=== PATIENT | male | born 1990 | race Caucasian/White ===

== ENCOUNTER 2017-05-10 02:33 | Emergency (ER) | payer OTHER ==
[~2017-05-10] VITALS: Ht 188 cm; Wt 181.0 kg
[~2017-05-10 02:33] MED LIST: HYDACE5 PO; RXTRAM50 PO; SILSUL1TC TOP
[2017-05-10] MEDS ORDERED: Amoxicillin500 MG PO (02:57)
== END 2017-05-10 03:12 | disposition home or self-care (01) ==
LOC: ER 02:33
DX: J02.0 Streptococcal pharyngitis (principal); Z88.5 Allergy status to narcotic agent; Z79.2 Long term (current) use of antibiotics
CPT/HCPCS: 87081; 87430; 99283

== ENCOUNTER 2018-08-21 08:56 | Inpatient (IN) | payer OTHER ==
[~2018-08-21] VITALS: Ht 188 cm; Wt 161.7 kg
[~2018-08-21 08:56] MED LIST changes: +Amoxicillin500 MG PO
[2018-08-21] MEDS ORDERED: Prilosec Otc20 MG PO (09:13)
[2018-08-21] MEDS ORDERED: MULTI VITAMIN1 EACH PO (09:14)
[2018-08-21 10:32] LABS: BASOPHILS PERCENT AUTO 1 % (0-2); EOSINOPHILS PERCENT AUTO 1 % (0-6); Hematocrit 47.3 % (37.0-53.0); Hemoglobin 15.3 g/dL (13.5-17.5); IMMATURE GRAN ABSOLUTE AUTO 0.01 K/mm3 (0.00-0.10); IMMATURE GRAN PERCENT AUTO 0 % (0-1); LYMPHOCYTES ABSOLUTE AUTO 2.71 K/mm3 (0.84-5.20); LYMPHOCYTES PERCENT AUTO 33 % (21-46); MONOCYTES ABSOLUTE AUTO 0.72 K/mm3 (0.16-1.47); MONOCYTES PERCENT AUTO 9 % (4-13); Mean Corpuscular HGB 28.1 pg (26.0-34.0); Mean Corpuscular HGB Conc 32.3 g/dL (31.5-36.5); Mean Corpuscular Volume 87 fL (80-100); Mean Platelet Volume 11.1 fL (9.1-12.4); NEUTROPHILS ABSOLUTE AUTO 4.59 K/mm3 (1.96-9.15); NEUTROPHILS PERCENT AUTO 56 % (41-73); Platelet Count 266 K/mm3 (150-400); RDW Coefficient Variation 13.5 % (11.7-14.2); RDW Standard Deviation 42.5 fL (35.1-46.3); Red Blood Cell Count 5.45 M/mm3 (4.30-5.90); White Blood Cell Count 8.23 K/mm3 (4.00-11.30)
[2018-08-21 11:00] LABS: Source, Urine Clean Catch
[2018-08-21 11:05] LABS: Appearance, Urine Clear (Clear); Bilirubin, Urine Neg (Neg); Blood, Urine 1+ (Neg); Color, Urine Yellow (P-Yellow); Glucose Qualitative, Urine Neg (Neg); Ketones, Urine 2+ (Neg); Leukocyte Esterase, Urine 1+ (Neg); Nitrite, Urine Neg (Neg); Protein, Urine 1+ (Neg); Urobilinogen, Urine NORM (Normal)
[2018-08-21 11:07] LABS: Alanine Aminotransfer (ALT/SGP 54 U/L (12-78); Albumin, Blood 3.8 g/dL (3.4-5.0); Albumin/Globulin Ratio 0.9 (0.8-1.8); Alk Phos 83 U/L (50-136); Anion Gap 6 mmol/L (6-16); Aspartate Aminotrans (AST/SGOT 30 U/L (12-37); Bilirubin, Total 0.6 mg/dL (0.1-1.0); Blood Urea Nitrogen 8 mg/dL (8-24); Bun/Creatinine Ratio 10.2 (12.0-20.0); CO2, Blood 28 mmol/L (21-32); Calcium, Blood 9.4 mg/dL (8.5-10.1); Chloride, Blood 107 mmol/L (98-108); Creatinine, Blood 0.79 mg/dL (0.60-1.20); Globulin, Blood 4.3 g/dL (2.2-4.0); Glomerular Filtration Rate >60 (60-); Glucose, Blood 92 mg/dL (70-99); Potassium, Blood 3.9 mmol/L (3.5-5.5); Sodium, Blood 141 mmol/L (136-145); Total Protein, Blood 8.1 g/dL (6.4-8.2)
[2018-08-21 11:28] LABS: Red Blood Cells, Urine 0-2 /hpf (0-2)
[2018-08-21 11:29] LABS: Bacteria Rare /hpf; Squamous Epithelial Cells Rare /hpf (Few)
[2018-08-21 15:52] LABS: International Normalized Ratio 1.06; Prothrombin Time Results 11.2 Sec (9.7-11.5)
--- NOTE | 2018-08-21 16:51 | NUR ---
1605: PT TO ICU 8 FROM ER, STOOD AND TRANSFERRED SELF FROM [facility] TO BED WITHOUT DIFFICULTY, GAIT STEADY. PT A&OX4, APPROPRIATE AND COOPERATIVE, DENIES PAIN AND NAUSEA AT THIS TIME, STATES CRAMPING ABD PAIN HAS BEEN INTERMITTENT. CARDIAC MONITORING INITIATED, HRR NSR, LS CTA, BT+, LAST BM YESTERDAY, ABDOMEN SOFT, NO DISTENTION NOTED, SLIGHTLY TENDER TO PALPATION. PT VOIDING WITHOUT DIFFICULTY, NO EDEMA NOTED, SKIN INTACT. VSS. 1645: IV TO RIGHT FA DC'D D/T PAIN, 18G TO LAC AND 18G TO RAC INSERTED, HEPARIN BOLUS ADMINISTERED, HEPARIN GTT INFUSING AT 13U/KG/HR, NS INFUSING AT 125ML/HR PER ORDERS. PT CONTINUES TO DENY PAIN AND NAUSEA, FAMILY MEMBERS AT BEDSIDE.
--- NOTE | 2018-08-21 17:37 | NUR ---
PT TO RAG CUTTING MACHINE TENDER AT THIS TIME WITH HEART CENTER STAFF, VSS, FAMILY MEMBERS TO WAITING ROOM.
--- NOTE | 2018-08-21 19:30 | NUR ---
ASSUMING CARE OF PT AT THIS TIME. PT REPORT RECEIVED AT BEDSIDE WITH OFFGOING ICU NURSE, CALOS GARCIA AND OFFGOING ABLE SEAMAN NURSE, LUCA GARCIA. PT TRANSFERRED FROM [facility] SE[facility] TO ICU AT THIS TIME. VS STABLE - SEE VS FS. PT DOES NOT APPEAR TO BE IN DISTRESS AT THIS TIME. WILL REVIEW PLAN OF CARE.
--- NOTE | 2018-08-21 19:40 | NUR ---
ASSESSMENT PT CALM, QUIET, COOPERATIVE, RESPONDS TO VERBAL STIMULI, SPONT OPENS EYES, TALKS AND ANSWERS QUESTIONS APPROPRIATELY, A&O X4. SENSATION INTACT. DENIES N/T. PT ABLE TO TOVAR. KEEP RLE STRAIGHT D/T R GROIN ACCESS SITE. WILL ASSIST WIHT Q2 HR TURNS AND ADL'S. NO WEAKNESS NOTED. PT C/O BACK AND R GROIN SITE PAIN - MEDICATED WITH PAIN MEDS PER PHYSICIAN'S / UTILIZE NONPHARM METHODS. LUNGS CLEAR, LOWER LOBES DIMINISHED. SHALLOW BREATHING. PT ON RA. OXY SAT >90%. RR 14. DENIES SOB. NO COUGHING. AFEBRILE. NSR. HR 90'S. BP STABLE - SEE VS FS. STRONG PULSES. WARM, PINK SKIN. NO CHEST PAIN OR PRESSURE. NO EDEMA. R GROIN SITE WITH SHEATH AND CORDIS: SMALL AMOUNTS OF DRIED RED BLOOD, OTHERWISE DRESSING C/D/I, SLIGHT TENDERNESS WITH AND WITHOUT PALPATION, NO HEMATOMA, NO ACTIVE BLEEDING, NO S/SX OF INFECTION. TPA AT 10 ML/HR VIA R GROIN SHEATH. NS WITH INFLATED PRESSURE BAG VIA R GROIN SHEATH. HEPARIN DRIP AT 2.65 U/KG/HR WITH A DOSING WEIGHT 113 KG (6.0 ML/HR). VERIFIED DRIPS WITH CALOS GARCIA AND PHARMACY. GASTRIC SLEEVE COMPLETED ON 08/03/18. INCISIONS HEALED. ACTIVE BT X4 QUADRANTS. ABD SOFT, NONTENDER, SEVERE DIST (PT STATES ABD DIST IS NORMAL), OBESE. PT TOLERATING PO CLEAR LIQUID DIET. NPO AT MIDNIGHT D/T SCHEDULED MODERN GREEK STUDIES PROFESSOR PROCEDURES AT [id number] ON 08/22/18. PER REPORT - PT USES URINAL WITH ASSISTANCE. PIV X2. NS AT 125 ML/HR.
--- NOTE | 2018-08-21 20:30 | NUR ---
DR. MURO CALLED DR. MURO AT THIS TIME. UPDATED DR. MURO OF PT'S STATUS, PAIN, HYPERTENSION (SBP 160'S - SEE VS FS). DR. MURO INCREASED FENT DOSAGE TO 25-100 MCG Q1 HR PRN FOR PAIN. DR. MURO ALSO CHANGED NOTIFY PROVIDER ORDER, "IF FIBRINOGEN <150 MG/DL OR DROPS BY 50% IN 6 HOURS, POST PROCEDURE. PER DR. MURO, STOP TPA IF FIBRINOGEN <150 MCG/DL OR DROPS BY 50% IN [address], [address] MURO". INFORMED DR. MURO OF FIBRINOGEN 427 LAB VALUE COMPLETED AT 19:46. DR. MURO ALSO ORDERED HYDRALAZINE PRN FOR SBP >160.
[2018-08-22 02:07] LABS: BASOPHILS PERCENT AUTO 1 % (0-2); EOSINOPHILS ABSOLUTE AUTO 0.09 K/mm3 (0.00-0.68); EOSINOPHILS PERCENT AUTO 1 % (0-6); Hematocrit 42.9 % (37.0-53.0); Hemoglobin 13.8 g/dL (13.5-17.5); IMMATURE GRAN ABSOLUTE AUTO 0.03 K/mm3 (0.00-0.10); IMMATURE GRAN PERCENT AUTO 0 % (0-1); LYMPHOCYTES ABSOLUTE AUTO 4.02 K/mm3 (0.84-5.20); LYMPHOCYTES PERCENT AUTO 51 % (21-46); MONOCYTES ABSOLUTE AUTO 0.76 K/mm3 (0.16-1.47); MONOCYTES PERCENT AUTO 10 % (4-13); Mean Corpuscular HGB 28.5 pg (26.0-34.0); Mean Corpuscular HGB Conc 32.2 g/dL (31.5-36.5); Mean Corpuscular Volume 89 fL (80-100); Mean Platelet Volume 11.1 fL (9.1-12.4); NEUTROPHILS PERCENT AUTO 37 % (41-73); Platelet Count 246 K/mm3 (150-400); RDW Coefficient Variation 13.5 % (11.7-14.2); RDW Standard Deviation 43.8 fL (35.1-46.3); Red Blood Cell Count 4.84 M/mm3 (4.30-5.90)
[2018-08-22 02:22] LABS: Anion Gap 9 mmol/L (6-16); Blood Urea Nitrogen 7 mg/dL (8-24); Bun/Creatinine Ratio 8.8 (12.0-20.0); CO2, Blood 23 mmol/L (21-32); Calcium, Blood 8.5 mg/dL (8.5-10.1); Chloride, Blood 109 mmol/L (98-108); Creatinine, Blood 0.79 mg/dL (0.60-1.20); Glomerular Filtration Rate >60 (60-); Glucose, Blood 85 mg/dL (70-99); Potassium, Blood 3.8 mmol/L (3.5-5.5); Sodium, Blood 141 mmol/L (136-145)
--- NOTE | 2018-08-22 04:38 | NUR ---
SHIFT ASSESSMENT NO ACUTE CHANGES NOTED T/O SHIFT. PT CALM, QUIET, COOPERATIVE, RESPONDS TO VERBAL STIMULI, SPONT OPENS EYES, TALKS AND ANSWERS QUESTIONS APPROPRIATELY, A&O X4. PT SLEPT T/O SHIFT. SENSATION INTACT. DENIES N/T. PT ABLE TO TOVAR. RLE REMAINED STRAIGHT D/T R GROIN ATERIAL ACCESS SITE. ASSISTED WITH Q2 HR TURNS AND ADL'S. NO WEAKNESS NOTED. PT C/O BACK AND R GROIN SITE PAIN/DISCOMFORT T/O SHIFT. CONT TO ASSESS FOR PAIN/DISCOMFORT AND MEDICATED WITH PAIN MEDS PER PHYSICIAN'S ORDER / UTILIZE NONPHARM METHODS. LUNGS CLEAR, LOWER LOBES DIMINISHED. SHALLOW BREATHING. PT ON RA. OXY AT >90%. RR 12 TO 20'S. DENIES SOB. NO COUGHING. AFEBRILE. NSR. HR 80'S TO 90'S. SLIGHT HYPERTENSIVE AT BEGINNING OF THE SHIFT. OTHERWISE BP STABLE (SEE VS FS). STRONG PULSES. WARM, PINK SKIN. NO CHEST PAIN OR PRESSURE. NO EDEMA. R GROIN SITE WITH ARTERIAL SHEATH AND CORDIS: SMALL AMOUNTS OF DRIED RED BLOOD, OTHERWISE DRESSING C/D/I, SLIGHT TENDERNESS WITH AND WITHOUT PALAPTION, NO HEMATOMA, NO ACTIVE BLEEDING, NO S/SX OF INFECTION, NO BRUISING. TPA AT 10 ML/HR VIA R GROIN ARTERIAL SHEATH. NS WITH INFLATED PRESSURE BAG VIA R GROIN ARTERIAL SHEATH. HEPARIN DRIP AT 2.65 UNITS/KG/HR WITH A DOSING WEIGHT 113 KG (6.0 ML/HR). GASTRIC SLEEVE COMPLETED ON 08/03/18. INCISIONS HEALED. ACTIVE BT X4 QUADRANTS. ABD SOFT, NONTENDER, SEVERE DIST (PT STATES ABD DIST IS NORMAL), OBESE. PT TOLERATED PO CLEAR LIQUID DIET UNTIL 0000. NPO AT MIDNIGHT D/T SCHEDULED HOSE SUSPENDER CUTTER PROCEDURE THIS AM. PT C/O NAUSEA, NO VOMITING THIS AM. NAUSEA RESOLVED AFTER ADMINISTERING ZOFRAN. PT USED URINAL WITHOUT ASSISTANCE - DARK YELLOW URINE NOTED. PIV X2. NS AT 125 ML/HR. WILL CONT TO MONITOR PT AND WILL PROVIDE BEDSIDE REPORT TO ONCOMING NURSE THIS AM.
--- NOTE | 2018-08-22 10:20 | NUR ---
0745: CARE ASSUMED, ASSESSMENT COMPLETED. PT DENIES NAUSEA AT THIS TIME, STATES BACK PAIN IS 7/10, SELF SEALING FUEL TANK REPAIRER STAFF AT BEDSIDE TO TAKE PT FOR PROCEDURE. PT DENIES ABD PAIN AND RIGHT GROIN PAIN AT SHEATH ACCESS SITE, DRESSING INTACT WITH DRIED BLOOD, NO ACTIVE BLEEDING, NO HEMATOMA NOTED. TPA INFUSING THROUGH RIGHT FEMORAL SHEATH AT 0.5MG/HR, HEPARIN INFUSING VIA PERIPHERAL IV AT 2.65U/KG/HR. PT ALERT AND ORIENTED, TO SELF SEALING FUEL TANK REPAIRER AT THIS TIME FOR EVALUATION OF TPA TREATMENT. 0835: PT RETURNED TO ROOM FROM SELF SEALING FUEL TANK REPAIRER, VSS. TPA NOW INFUSING AT 2MG/HR SINCE 829 PER REPORT. NO INTERVENTION DONE, WILL CONTINUE TPA INFUSION X6 HOURS AND THEN PT WILL GO BACK TO SELF SEALING FUEL TANK REPAIRER TO RE-EVALUATE EFFECT OF TPA INFUSION. PT LYING FLAT WITH RLE STRAIGHT, DRESSING TO RIGHT FEMORAL SHEATH ACCESS SITE CDI. 0850: FENTANYL AND COMPAZINE ADMINISTERED PER ORDERS FOR 9/10 PAIN AND NAUSEA, PT DENIES OTHER NEEDS. 0915: PT RESTING WITH EYES CLOSED, VSS. 1030: PT REPOSITIONED IN BED, MEDICATED FOR 7/10 BACK PAIN, PT DENIES NAUSEA OR OTHER NEEDS. REMAINS LYING FLAT WITH RLE STRAIGHT, NO CHANGES TO DRIP RATES.
--- NOTE | 2018-08-22 12:27 | NUR ---
1150: PT RESTING IN BED, REPORTS RELIEF FROM FENTANYL, DENIES NAUSEA OR NEEDS AT THIS TIME. CLINIMIX INFUSING 75ML/HR, OTHER GTT'S REMAIN UNCHANGED. VSS, NO CHANGES NOTED TO RIGHT GROIN SHEATH INSERTION SITE.
--- NOTE | 2018-08-22 13:11 | NUR ---
Pt medicated for back pain at 1234, denied other c/o. Pt resting in bed at this time, states pain is minimal, denies nausea. at bedside, lab called for fibrinogen level. Pt's vss.
--- NOTE | 2018-08-22 15:33 | NUR ---
1450: TPA OFF AT 1430. PT MEDICATED FOR PAIN AND NAUSEA, STATES PAIN IS NOW 2/10, DENIES NAUSEA. PT TO STORAGE RECEIPT POSTER AT THIS TIME, KERLINE.
--- NOTE | 2018-08-22 16:46 | NUR ---
1555: PT BACK FROM MECHANICAL PRODUCT DESIGN ENGINEER, REPERFUSION TO MESENTERIC VEIN ACCOMPLISHED PER REPORT FROM MECHANICAL PRODUCT DESIGN ENGINEER STAFF, ARTERIAL SHEATH WAS REMOVED IN LAB, ANGIO SEAL PLACED. CHG DRESSING TO RIGHT GROIN CDI, NO HEMATOMA NOTED AT SITE, PT REPORTS MILD TENDERNESS, RIGHT PPP, CMS WNL TO RLE. PT LYING FLAT IN BED PER ORDERS, RLE STRAIGHT. HEPARIN AND TPA DRIPS DC'D IN MECHANICAL PRODUCT DESIGN ENGINEER, CLINIMIX CONTINUES TO INFUSE AT 75ML/HR. VSS AT THIS TIME, PT REPORTS 8/10 BACK PAIN, DENIES NAUSEA. MAY INCREASE HOB 10 DEGREES PER HOUR PER MECHANICAL PRODUCT DESIGN ENGINEER NURSE INSTRUCTIONS. 1625: FENTANYL ADMINISTERED FOR PAIN, PT DENIES OTHER NEEDS, FAMILY AT BEDSIDE. 1700: HOB UP 10 DEGREES AT THIS TIME. DRESSING TO RIGHT GROIN REMAINS CDI, SITE WNL. PT RESTING WITH EYES CLOSED, VSS.
--- NOTE | 2018-08-22 18:09 | NUR ---
HOB UP 20 DEGREES, PT DENIES PAIN AT RIGHT GROIN SITE, SITE REMAINS WNL, DRESSING CDI, RIGHT PPP, CMS WNL TO RLE, VSS. PT'S PARENTS AT BEDSIDE.
--- NOTE | 2018-08-22 18:50 | NUR ---
VSS AT THIS TIME, PT REPORTS MINIMAL DISCOMFORT AT SITE, DENIES NEED FOR PAIN MEDICATION AT THIS TIME, DENIES NAUSEA. PT COMPLIANT WITH GROIN ACCESS SITE PRECAUTIONS. DRESSING TO RIGHT GROIN REMAINS CDI, NO HEMATOMA NOTED, NO ADDITIONAL DRAINAGE, NO ACTIVE BLEEDING. LEG REMAINS STRAIGHT, HOB UP 20 DEGREES, REPORT TO ONCOMING NURSE.
--- NOTE | 2018-08-22 19:15 | NUR ---
ASSUMING CARE OF PT AT THIS TIME. PT REPORT RECEIVED AT BEDSIDE WITH OFFGOING NURSE, CALOS GARCIA. PT LAYING IN BED, EATING DINNER, WATCHING TELEVISION, AND VISITING WITH FAMILY MEMBERS. VS STABLE (SEE VS FS). PT DOES NOT APPEAR TO BE IN DISTRESS AT THIS TIME. WILL REVIEW PLAN OF CARE.
--- NOTE | 2018-08-22 19:30 | NUR ---
ASSESSMENT PT CALM, QUIET, COOPERATIVE, RESPONDS TO VERBAL STIMULI, SPONT OPENS EYES, TALKS AND ANSWERS QUESTIONS APPROPRIATELY, A&O X4. SENSATION INTACT. DENIES N/T. PT TOVAR. NO WEAKNESS NOTED. INCREASING HOB POST R GROIN SHEATH REMOVAL. PLANNING TO AMBULATE PT. PT DENIES PAIN/DISCOMFORT. NO S/SX OF PAIN/DISCOMFORT NOTED. LUNGS CLEAR, LOWER LOBES DIMINIHSED. SHALLOW BREATHING. PT ON RA. OXY SAT >90%. RR 16. DENIES SOB. NO COUGHING. AFEBRILE. NSR. HR 90'S. BP STABLE - SEE VS FS. STRONG PULSES. WARM, PINK SKIN. NO CHEST PAIN OR PRESSURE. NO EDEMA. R GROIN SHEATH REMOVED AT 1555. R GROIN ACCESS SITE: SMALL AMOUTNS OF DRIED RED BLOOD, OTHERWISE DRESSING C/D/I, NO TENDERNESS, NO HEMATOMA, NO ACTIVE BLEEDING, NO S/SX OF INFECTION. NO BRUISING. GSTRIC SLEEVE COMPELTED ON 08/03/18. INCISION HEALED. ACTIVE BT X4 QUADRANTS. ABD SOFT, NONTENDER, SEVERE DIST (PT STATES ABD DIST IS NORMAL), OBESE. PT TOLERATING DIET. PT USES URINAL WITHOUT ASSISTANCE. DARK YELLOW TO GNOZALO COLORED URINE. PIV X1. CLINIMIX AT 75 ML/HR.
--- NOTE | 2018-08-22 20:30 | NUR ---
AMBULATION / R GROIN SITE PT AMBULATED AT THIS TIME AND CURRENTLY SITTING AT EDGE OF BED. R GROIN SITE REMAINS WNL EXCEPT SMALL AMOUNTS OF DRY BLOOD ON DRESSING. NO OTHER CHANGES AT THIS TIME.
--- NOTE | 2018-08-22 20:55 | NUR ---
PT REPORT CHRISS, NURSING SOCIAL INSURANCE SPECIALIST ASSIGNED PT TO ROOM 343. CALLED ROOM 343'S NURSE. ONCOMING NURSE PLANNING TO CALL ICU AT THIS TIME.
--- NOTE | 2018-08-22 21:20 | NUR ---
PT REPORT PT REPORT PROVIDED TO ONCOMING NURSE (ROOM 343'S NURSE) VIA TELEPHONE AT THIS TIME. SHERIN FARFAN AND SHERIN KING PLANNING TO TRANSFER PT TO ROOM 343 AT THIS TIME.
--- NOTE | 2018-08-22 21:33 | NUR ---
PT TRANSFER PT TRANSFERRED VIA WHEELCHAIR BY SHERIN FARFAN AT THIS TIME. PT ON RA. NO ACUTE CHANGES NOTED. PT DOES NOT APPEAR TO BE IN DISTRESS AT THIS TIME. VS STABLE (SEE VS FS).
--- NOTE | 2018-08-22 22:07 | NUR ---
2130 PT TRANSFERRED FROM ICU TO ROOM 343 PER BED. PTS RIGHT GROIN DRESSING DRY AND INTACT, INCISION WELL APPROXIMATED. PT DENIES PAIN.
--- NOTE | 2018-08-23 05:00 | NUR ---
SHIFT SUMMARY: 28 Y/O MALE RESTED COMFORTABLY ALL SHIFT WITH RIGHT GROIN DRESSING DRY AND INTACT (CLEAR VIEW DRESSING), INCISION WELL APPROXIMATED. PT DENIES PAIN, NAUSEA OR DYSPNEA. PT HAPPY AND COOPERATIVE. PT PENDING POSSIBLE DISCHARGE HOME TODAY. PTS BED LOW POSITION, CALL LIGHT AT SIDE.
[2018-08-23 05:33] LABS: Hematocrit 40.5 % (37.0-53.0); Mean Corpuscular HGB 28.2 pg (26.0-34.0); Mean Corpuscular HGB Conc 32.1 g/dL (31.5-36.5); Mean Corpuscular Volume 88 fL (80-100); Mean Platelet Volume 11.4 fL (9.1-12.4); Platelet Count 225 K/mm3 (150-400); RDW Coefficient Variation 13.5 % (11.7-14.2); RDW Standard Deviation 43.7 fL (35.1-46.3); Red Blood Cell Count 4.61 M/mm3 (4.30-5.90); White Blood Cell Count 6.73 K/mm3 (4.00-11.30)
[2018-08-23 05:51] LABS: Albumin, Blood 2.8 g/dL (3.4-5.0); Anion Gap 5 mmol/L (6-16); Blood Urea Nitrogen 8 mg/dL (8-24); Bun/Creatinine Ratio 10.9 (12.0-20.0); CO2, Blood 28 mmol/L (21-32); Calcium, Blood 8.5 mg/dL (8.5-10.1); Chloride, Blood 105 mmol/L (98-108); Creatinine, Blood 0.73 mg/dL (0.60-1.20); Glomerular Filtration Rate >60 (60-); Glucose, Blood 97 mg/dL (70-99); Phosphorus, Blood 3.2 mg/dL (2.5-4.9); Potassium, Blood 3.7 mmol/L (3.5-5.5); Sodium, Blood 138 mmol/L (136-145)
[2018-08-23] MEDS ORDERED: XARELTO15 MG PO (12:20)
--- NOTE | 2018-08-23 12:42 | NUR ---
PT DISCHARGED PT DISCHARGED AT 1241. PT IN STABLE CONDITION WITH VSS. PT & EDUCATED ON DC INSTRUCTIONS & FOLLOW UP APPOINTMENTS. BOTH DENIED NEED FOR FURTHER INSTRUCTION. PT REFUSED WHEELCHAIR OUT & TO BE DRIVEN HOME BY .
[2018-12-17] MEDS ORDERED: XARELTO20 MG PO (13:57)
== END 2018-08-23 12:42 | disposition home or self-care (01) | DRG 393 ==
LOC: ER 08:56 → ICUW 13:59 → ICUE 16:04 → MEDS 08-22 21:35
PROVIDERS: Physician Assistant; ADMIT Internal Medicine
PROC: B4151ZZ Fluoroscopy of Inferior Mesenteric Artery using Low Osmolar Contrast (ICD-10-PCS; principal; 2018-08-22)
PROC: B4141ZZ Fluoroscopy of Superior Mesenteric Artery using Low Osmolar Contrast (ICD-10-PCS; 2018-08-22)
PROC: 3E06317 Introduction of Other Thrombolytic into Central Artery, Percutaneous Approach (ICD-10-PCS; 2018-08-22)
DX: K95.89 Other complications of other bariatric procedure (principal); I81 Portal vein thrombosis; K55.059 Acute (reversible) ischemia of intestine, part and extent unspecified; Z68.41 Body mass index [BMI] 40.0-44.9, adult; E66.01 Morbid (severe) obesity due to excess calories; Z98.84 Bariatric surgery status; K21.9 Gastro-esophageal reflux disease without esophagitis
CPT/HCPCS: 36215; 36415; 37211; 37213; 37214; 74177; 75726; 80048; 80053; 80069; 81001; 83605; 85025; 85027; 85384; 85610; 85730; 87077; 87086; 87186; 96360-59; 99152; 99153; 99285-25; C1751; C1760; C1769; C1894; C9113; J0780; J1644; J2250; J2405; J2997; J3010; J7030; J7040; J7050; J7120; Q9967

== ENCOUNTER 2018-08-24 20:56 | Inpatient (IN) | payer OTHER ==
[~2018-08-24] VITALS: Ht 188 cm; Wt 159.2 kg
[~2018-08-24 20:56] MED LIST changes: +MULTI VITAMIN1 EACH PO; +Prilosec Otc20 MG PO; +XARELTO15 MG PO
[2018-08-24 23:25] LABS: BASOPHILS ABSOLUTE AUTO 0.09 K/mm3 (0.00-0.23); BASOPHILS PERCENT AUTO 1 % (0-2); EOSINOPHILS ABSOLUTE AUTO 0.23 K/mm3 (0.00-0.68); EOSINOPHILS PERCENT AUTO 3 % (0-6); Hematocrit 46.2 % (37.0-53.0); Hemoglobin 14.8 g/dL (13.5-17.5); IMMATURE GRAN ABSOLUTE AUTO 0.03 K/mm3 (0.00-0.10); IMMATURE GRAN PERCENT AUTO 0 % (0-1); LYMPHOCYTES PERCENT AUTO 46 % (21-46); MONOCYTES ABSOLUTE AUTO 0.67 K/mm3 (0.16-1.47); MONOCYTES PERCENT AUTO 9 % (4-13); Mean Corpuscular HGB 28.3 pg (26.0-34.0); Mean Corpuscular Volume 88 fL (80-100); Mean Platelet Volume 10.9 fL (9.1-12.4); NEUTROPHILS ABSOLUTE AUTO 2.94 K/mm3 (1.96-9.15); NEUTROPHILS PERCENT AUTO 40 % (41-73); Platelet Count 282 K/mm3 (150-400); RDW Coefficient Variation 13.4 % (11.7-14.2); RDW Standard Deviation 43.4 fL (35.1-46.3); Red Blood Cell Count 5.23 M/mm3 (4.30-5.90); White Blood Cell Count 7.36 K/mm3 (4.00-11.30)
[2018-08-24 23:39] LABS: International Normalized Ratio 1.19; Prothrombin Time Results 12.4 Sec (9.7-11.5)
[2018-08-24 23:50] LABS: Alanine Aminotransfer (ALT/SGP 45 U/L (12-78); Albumin, Blood 3.6 g/dL (3.4-5.0); Albumin/Globulin Ratio 0.8 (0.8-1.8); Alk Phos 81 U/L (50-136); Anion Gap 11 mmol/L (6-16); Aspartate Aminotrans (AST/SGOT 25 U/L (12-37); Bilirubin, Total 0.6 mg/dL (0.1-1.0); Blood Urea Nitrogen 10 mg/dL (8-24); Bun/Creatinine Ratio 13.8 (12.0-20.0); CO2, Blood 25 mmol/L (21-32); Calcium, Blood 9.3 mg/dL (8.5-10.1); Chloride, Blood 105 mmol/L (98-108); Creatinine, Blood 0.73 mg/dL (0.60-1.20); Globulin, Blood 4.5 g/dL (2.2-4.0); Glomerular Filtration Rate >60 (60-); Glucose, Blood 77 mg/dL (70-99); Potassium, Blood 3.6 mmol/L (3.5-5.5); Sodium, Blood 141 mmol/L (136-145); Total Protein, Blood 8.1 g/dL (6.4-8.2)
--- NOTE | 2018-08-25 06:53 | NUR ---
SHIFT SUMMARY PT WAS A NEW ADMIT, ARRIVING ON THE FLOOR AT 0345. ADMITTED FOR A SUPERIOR MESENTERIC VEIN THROMBOSIS. HE IS A&O X 4, AND ABLE TO AMBULATE INDEPENDENTLY TO THE BATHROOM. PT DENIED ANY PAIN, NAUSEA OR SOB SINCE ARRIVAL ON THE FLOOR. PT STARTED ON A CONTINUOUS HEPARIN DRIP. ALSO RECEIVING NS AT 100 ML/HR. VITALS STABLE. NO ACUTE CHANGES IN PT CONDITION NOTED. WILL CONTINUE TO MONITOR AND TREAT PER EMAR UNTIL HAND OFF TO DAY SHIFT.
--- NOTE | 2018-08-25 16:29 | NUR ---
PT IS A/OX3, PLEASANT AND COOPERATIVE, THE PT IS UP IND IN HIS ROOM, THE PT WAS MEDICATED FOR BURNING PAIN IN THE LEFT LEG THIS AM, HAS NOT C/O PAIN SO FRAR SINCE THEN, THE PT CONTINUES ON THE HEPRIN GTT AND APPEARS TO BE TOLERATING OT WELL, THE PT WAS STARTED ON CLEAR LIQUID DIET AND SO FAR HAS TOLERATED IT WELL, MULTIPLE FAMILY IS AT THE BEDSIDE, CALL LIGHT IN REACH WILL CONTINUE TO MONITOR FOR CHANGES
[2018-08-26 05:05] LABS: BASOPHILS ABSOLUTE AUTO 0.07 K/mm3 (0.00-0.23); BASOPHILS PERCENT AUTO 1 % (0-2); EOSINOPHILS ABSOLUTE AUTO 0.27 K/mm3 (0.00-0.68); EOSINOPHILS PERCENT AUTO 4 % (0-6); Hematocrit 41.9 % (37.0-53.0); Hemoglobin 13.8 g/dL (13.5-17.5); IMMATURE GRAN ABSOLUTE AUTO 0.03 K/mm3 (0.00-0.10); IMMATURE GRAN PERCENT AUTO 1 % (0-1); LYMPHOCYTES ABSOLUTE AUTO 3.17 K/mm3 (0.84-5.20); LYMPHOCYTES PERCENT AUTO 52 % (21-46); MONOCYTES ABSOLUTE AUTO 0.58 K/mm3 (0.16-1.47); MONOCYTES PERCENT AUTO 10 % (4-13); Mean Corpuscular HGB 28.5 pg (26.0-34.0); Mean Corpuscular HGB Conc 32.9 g/dL (31.5-36.5); Mean Corpuscular Volume 86 fL (80-100); Mean Platelet Volume 11.1 fL (9.1-12.4); NEUTROPHILS ABSOLUTE AUTO 1.96 K/mm3 (1.96-9.15); NEUTROPHILS PERCENT AUTO 32 % (41-73); Platelet Count 264 K/mm3 (150-400); RDW Coefficient Variation 13.4 % (11.7-14.2); Red Blood Cell Count 4.85 M/mm3 (4.30-5.90); White Blood Cell Count 6.08 K/mm3 (4.00-11.30)
[2018-08-26 05:25] LABS: Alanine Aminotransfer (ALT/SGP 51 U/L (12-78); Albumin, Blood 3.1 g/dL (3.4-5.0); Albumin/Globulin Ratio 0.7 (0.8-1.8); Alk Phos 73 U/L (50-136); Anion Gap 8 mmol/L (6-16); Aspartate Aminotrans (AST/SGOT 37 U/L (12-37); Bilirubin, Total 0.8 mg/dL (0.1-1.0); Blood Urea Nitrogen 7 mg/dL (8-24); Bun/Creatinine Ratio 10.1 (12.0-20.0); CO2, Blood 26 mmol/L (21-32); Calcium, Blood 9.4 mg/dL (8.5-10.1); Chloride, Blood 104 mmol/L (98-108); Creatinine, Blood 0.69 mg/dL (0.60-1.20); Globulin, Blood 4.3 g/dL (2.2-4.0); Glomerular Filtration Rate >60 (60-); Glucose, Blood 88 mg/dL (70-99); Magnesium, Blood 2.1 mg/dL (1.6-2.4); Potassium, Blood 3.7 mmol/L (3.5-5.5); Sodium, Blood 138 mmol/L (136-145); Total Protein, Blood 7.4 g/dL (6.4-8.2)
--- NOTE | 2018-08-26 07:43 | NUR ---
SHIFT SUMMARY NO ACUTE CHANGES THIS SHIFT. SLEPT WELL, AOX4, VSS. DENIES SOB OR N/V. REPORTED CRAMPING PAIN IN ABD LAST NIGHT & NUMBING PAIN IN L LEG, MEDICATED 1X W/FENTANYL PER ORDERS. HEPARIN GTT RUNNING @17U/KG/HR PER ORDERS. CALL LIGHT IN REACH.
--- NOTE | 2018-08-26 17:36 | NUR ---
PATIENT ASKED FOR MORE THAN JELLO. PUDDING WAS OFFERED AND PATIENT HAS HAD NO ADVERSE EFFECTS. NO COMPLAINTS OR ACUTE CHANGES THIS SHIFT. HEPARIN RUNNING PER ORDER.
[2018-08-27 05:25] LABS: International Normalized Ratio 1.16; Prothrombin Time Results 12.1 Sec (9.7-11.5)
--- NOTE | 2018-08-27 05:56 | NUR ---
INTERNAL GRINDER SET UP OPERATOR SUMMARY NO ACUTE CHANGES THIS SHIFT. PT AAOX4 AND INDEPENDENT IN ROOM. PT TOLERATING FULL LIQUID DIET. CONTINUES ON HEPARIN DRIP, RATE INCREASED THIS SHIFT PER PHARMACY. VSS, WILL CONTINUE TO MONITOR.
--- NOTE | 2018-08-27 17:13 | NUR ---
SHIFT SUMMARY OUT TO CT THIS AFTERNOON. HAS HAD NO PAIN OR NAUSEA WITH FULL LIQUID DIET. INDEPENDENT IN ROOM. WALKING IN HALLWAY A TIME OR TWO. SHOWER TAKEN THIS MORNING. AWAITING CT RESULTS.
--- NOTE | 2018-08-28 04:59 | NUR ---
POWER LINE LINEMAN SUMMARY NO ACUTE CHANGES THIS SHIFT. PT AAOX4 AND INDEPENDENT. PT DENIES PAIN, N/V, SOB. STILL TOLERATING FULL LIQUID DIET WELL W/O ISSUE. CONTINUES ON HEPARIN DRIP AT SAME RATE AND DOSE. VSS, WILL CONTINUE TO MONITOR.
--- NOTE | 2018-08-28 14:54 | NUR ---
DISCHARGE THE PT VERBALIZED UNDERSTANDING OF THE DC INSTRUCTIONS, NO NEW PERSCRIPTIONS, THE PT DECLINED WHEELCHAIR AND AMBULATED OUT STEADY ON HIS FEET APPEARED TO BE BREATHING EASILY ON RA, FAMILY WAS ACCOMPANING THE PT
[2018-12-17] MEDS ORDERED: XARELTO20 MG PO (13:57)
== END 2018-08-28 14:51 | disposition home or self-care (01) | DRG 443 ==
LOC: ER 20:56 → MEDS 20:57
PROVIDERS: Emergency Medicine; Internal Medicine; ADMIT Hospitalist
DX: I81 Portal vein thrombosis (principal); K21.9 Gastro-esophageal reflux disease without esophagitis; Z98.84 Bariatric surgery status; E66.01 Morbid (severe) obesity due to excess calories
CPT/HCPCS: 36415; 74174; 74175; 80053; 83605; 83690; 83735; 85025; 85610; 85730; 96374; 96375; 96376; 99285-25; G0378; J1644; J1650; J2405; J3010; J7030; Q9967

== ENCOUNTER 2018-11-19 21:31 | Emergency (ER) | payer OTHER ==
[~2018-11-19] VITALS: Ht 188 cm; Wt 143.8 kg
[2018-11-19 23:14] LABS: BASOPHILS PERCENT AUTO 1 % (0-2); EOSINOPHILS ABSOLUTE AUTO 0.12 K/mm3 (0.00-0.68); EOSINOPHILS PERCENT AUTO 1 % (0-6); Hematocrit 45.9 % (37.0-53.0); Hemoglobin 15.2 g/dL (13.5-17.5); IMMATURE GRAN ABSOLUTE AUTO 0.03 K/mm3 (0.00-0.10); IMMATURE GRAN PERCENT AUTO 0 % (0-1); LYMPHOCYTES ABSOLUTE AUTO 4.11 K/mm3 (0.84-5.20); LYMPHOCYTES PERCENT AUTO 42 % (21-46); MONOCYTES ABSOLUTE AUTO 0.78 K/mm3 (0.16-1.47); MONOCYTES PERCENT AUTO 8 % (4-13); Mean Corpuscular HGB 29.8 pg (26.0-34.0); Mean Corpuscular HGB Conc 33.1 g/dL (31.5-36.5); Mean Corpuscular Volume 90 fL (80-100); Mean Platelet Volume 11.1 fL (9.1-12.4); NEUTROPHILS ABSOLUTE AUTO 4.73 K/mm3 (1.96-9.15); NEUTROPHILS PERCENT AUTO 48 % (41-73); Platelet Count 210 K/mm3 (150-400); RDW Coefficient Variation 13.9 % (11.7-14.2); RDW Standard Deviation 46.2 fL (35.1-46.3); White Blood Cell Count 9.87 K/mm3 (4.00-11.30)
[2018-11-19 23:33] LABS: Alanine Aminotransfer (ALT/SGP 80 U/L (12-78); Albumin, Blood 3.7 g/dL (3.4-5.0); Alk Phos 109 U/L (50-136); Anion Gap 4 mmol/L (6-16); Aspartate Aminotrans (AST/SGOT 93 U/L (12-37); Bilirubin, Total 0.7 mg/dL (0.1-1.0); Blood Urea Nitrogen 11 mg/dL (8-24); Bun/Creatinine Ratio 13.5 (12.0-20.0); CO2, Blood 29 mmol/L (21-32); Chloride, Blood 108 mmol/L (98-108); Creatinine, Blood 0.82 mg/dL (0.60-1.20); Globulin, Blood 3.7 g/dL (2.2-4.0); Glomerular Filtration Rate >60 (60-); Glucose, Blood 87 mg/dL (70-99); Potassium, Blood 3.6 mmol/L (3.5-5.5); Sodium, Blood 141 mmol/L (136-145); Total Protein, Blood 7.4 g/dL (6.4-8.2)
[2018-11-20] MEDS ORDERED: Zithromax250 MG PO (02:59)
[2018-12-17] MEDS ORDERED: XARELTO20 MG PO (13:57)
[2018-12-27] MEDS ORDERED: ENOX120I SC (14:50)
[2018-12-27] MEDS ORDERED: OMEPRAZOLE20 MG (15:22)
== END 2018-11-20 03:22 | disposition home or self-care (01) ==
LOC: ER 21:31
PROVIDERS: Emergency Medicine
DX: J18.9 Pneumonia, unspecified organism (principal); Z88.5 Allergy status to narcotic agent; Z79.899 Other long term (current) drug therapy; Z79.01 Long term (current) use of anticoagulants
CPT/HCPCS: 36415; 74177; 80053; 83690; 85025; 96374-59; 99284-25; J2405; Q9967

== ENCOUNTER 2018-12-12 17:01 | Inpatient (IN) | payer OTHER ==
[~2018-12-12] VITALS: Ht 188 cm; Wt 143.2 kg
[~2018-12-12 17:01] MED LIST changes: +Zithromax250 MG PO
[2018-12-12 17:57] LABS: BASOPHILS ABSOLUTE AUTO 0.08 K/mm3 (0.00-0.23); BASOPHILS PERCENT AUTO 1 % (0-2); EOSINOPHILS ABSOLUTE AUTO 0.09 K/mm3 (0.00-0.68); EOSINOPHILS PERCENT AUTO 1 % (0-6); Hematocrit 48.6 % (37.0-53.0); Hemoglobin 15.9 g/dL (13.5-17.5); IMMATURE GRAN ABSOLUTE AUTO 0.03 K/mm3 (0.00-0.10); IMMATURE GRAN PERCENT AUTO 0 % (0-1); LYMPHOCYTES PERCENT AUTO 46 % (21-46); MONOCYTES ABSOLUTE AUTO 0.57 K/mm3 (0.16-1.47); MONOCYTES PERCENT AUTO 7 % (4-13); Mean Corpuscular HGB 29.6 pg (26.0-34.0); Mean Corpuscular HGB Conc 32.7 g/dL (31.5-36.5); Mean Corpuscular Volume 91 fL (80-100); Mean Platelet Volume 11.3 fL (9.1-12.4); NEUTROPHILS ABSOLUTE AUTO 3.96 K/mm3 (1.96-9.15); NEUTROPHILS PERCENT AUTO 46 % (41-73); Platelet Count 238 K/mm3 (150-400); RDW Coefficient Variation 13.2 % (11.7-14.2); RDW Standard Deviation 44.5 fL (35.1-46.3); Red Blood Cell Count 5.37 M/mm3 (4.30-5.90); White Blood Cell Count 8.73 K/mm3 (4.00-11.30)
[2018-12-12 18:15] LABS: Alanine Aminotransfer (ALT/SGP 41 U/L (12-78); Albumin, Blood 4.2 g/dL (3.4-5.0); Albumin/Globulin Ratio 1.1 (0.8-1.8); Alk Phos 101 U/L (50-136); Anion Gap 6 mmol/L (6-16); Aspartate Aminotrans (AST/SGOT 24 U/L (12-37); Bilirubin, Total 0.5 mg/dL (0.1-1.0); Blood Urea Nitrogen 11 mg/dL (8-24); Bun/Creatinine Ratio 13.3 (12.0-20.0); CO2, Blood 29 mmol/L (21-32); Calcium, Blood 9.5 mg/dL (8.5-10.1); Chloride, Blood 104 mmol/L (98-108); Creatinine, Blood 0.83 mg/dL (0.60-1.20); Globulin, Blood 3.9 g/dL (2.2-4.0); Glomerular Filtration Rate >60 (60-); Glucose, Blood 94 mg/dL (70-99); Potassium, Blood 3.8 mmol/L (3.5-5.5); Sodium, Blood 139 mmol/L (136-145); Total Protein, Blood 8.1 g/dL (6.4-8.2)
[2018-12-12 18:19] LABS: Source, Urine Clean Catch
[2018-12-12 18:27] LABS: Bilirubin, Urine Neg (Neg); Blood, Urine Neg (Neg); Glucose Qualitative, Urine Neg (Neg); Ketones, Urine 1+ (Neg); Leukocyte Esterase, Urine 1+ (Neg); Nitrite, Urine Neg (Neg); Protein, Urine Neg (Neg); Specific Gravity, Urine 1.025 (1.003-1.022); Urobilinogen, Urine NORM (Normal)
[2018-12-12 18:37] LABS: Appearance, Urine Clear (Clear); Color, Urine Yellow (P-Yellow)
[2018-12-12 18:52] LABS: Bacteria Mod /hpf; Mucus Light (0-Heavy); Red Blood Cells, Urine Not Seen /hpf (0-2); Squamous Epithelial Cells Rare /hpf (Few)
[2018-12-13 00:47] LABS: International Normalized Ratio 1.08; Prothrombin Time Results 11.4 Sec (9.7-11.5)
--- NOTE | 2018-12-13 01:15 | NUR ---
NEW ADMIT FROM ER FOR DX: SUPERIOR MESENTERIC VEIN THROMBOSIS. PT RECEIVED GASTRIC SLEEVE 08/03 AND DEVELOPED CLOT SHORTLY AFTER. PT WAS PLACED ON XERALTO BUT THEN WAS INTRUCTED TO STOP DUE TO RECTAL BLEEDING. PT WAS SCHEDULED TO HAVE THROMBOSIS REMOVED THIS COMING SUNDAY. THE PAIN AND N/V BECAME TOO SEVERE TO MANAGE AT HOME AND PT CAME TO ER. PT IS CURRENTLY ON HEPARIN GTT AND DR. MURO STATE WILL BE SEEING HIM THIS WEEKEND TO PERFORM PROCEDURE. PT CURRENTLY RESTING COMFORTALBY IN BED. STATES PAIN 4/10 AND DENIES NEED FOR PAIN MEDICATION, DENIES ANY N/V. NEW IV PLACED IN LW AND NS STARTED. CALL LIGHT IN REACH.
--- NOTE | 2018-12-13 04:49 | NUR ---
NEW ADMIT THIS SHIFT. PT HAS DONE VERY WELL SINCE COMING TO FLOOR. PAIN HAS BEEN MINIMAL, NO N/V. HEPARIN GTT INFUSING PTT DRAW TIMED FOR 0530, WILL TITRATE NEEDED. PT SLEEPING AT THIS TIME. CALL LIGHT IN REACH.
[2018-12-13 06:00] LABS: BASOPHILS ABSOLUTE AUTO 0.07 K/mm3 (0.00-0.23); BASOPHILS PERCENT AUTO 1 % (0-2); EOSINOPHILS PERCENT AUTO 2 % (0-6); Hematocrit 44.2 % (37.0-53.0); Hemoglobin 14.3 g/dL (13.5-17.5); IMMATURE GRAN ABSOLUTE AUTO 0.02 K/mm3 (0.00-0.10); IMMATURE GRAN PERCENT AUTO 0 % (0-1); LYMPHOCYTES ABSOLUTE AUTO 3.48 K/mm3 (0.84-5.20); LYMPHOCYTES PERCENT AUTO 57 % (21-46); MONOCYTES ABSOLUTE AUTO 0.44 K/mm3 (0.16-1.47); MONOCYTES PERCENT AUTO 7 % (4-13); Mean Corpuscular HGB 29.5 pg (26.0-34.0); Mean Corpuscular HGB Conc 32.4 g/dL (31.5-36.5); Mean Corpuscular Volume 91 fL (80-100); Mean Platelet Volume 11.3 fL (9.1-12.4); NEUTROPHILS ABSOLUTE AUTO 1.98 K/mm3 (1.96-9.15); NEUTROPHILS PERCENT AUTO 33 % (41-73); Platelet Count 168 K/mm3 (150-400); RDW Coefficient Variation 13.6 % (11.7-14.2); RDW Standard Deviation 45.9 fL (35.1-46.3); Red Blood Cell Count 4.85 M/mm3 (4.30-5.90); White Blood Cell Count 6.09 K/mm3 (4.00-11.30)
[2018-12-13 06:19] LABS: Anion Gap 5 mmol/L (6-16); Blood Urea Nitrogen 8 mg/dL (8-24); Bun/Creatinine Ratio 10.7 (12.0-20.0); CO2, Blood 27 mmol/L (21-32); Calcium, Blood 8.5 mg/dL (8.5-10.1); Chloride, Blood 109 mmol/L (98-108); Creatinine, Blood 0.75 mg/dL (0.60-1.20); Glomerular Filtration Rate >60 (60-); Glucose, Blood 80 mg/dL (70-99); Potassium, Blood 3.8 mmol/L (3.5-5.5); Sodium, Blood 141 mmol/L (136-145)
--- NOTE | 2018-12-13 08:00 | NUR ---
DENIES ANY NEED FOR PAIN MEDS AT THIS TIME, DENIES ANY NAUSEA, DENIES ANY OTHER DISCOMFORT AT THIS TIME, CONT. TO MONITOR FOR ANY CHANGES.
[2018-12-14 04:18] LABS: Hematocrit 41.2 % (37.0-53.0); Hemoglobin 13.2 g/dL (13.5-17.5); Mean Corpuscular HGB 30.1 pg (26.0-34.0); Mean Platelet Volume 11.6 fL (9.1-12.4); Platelet Count 176 K/mm3 (150-400); RDW Coefficient Variation 13.5 % (11.7-14.2); RDW Standard Deviation 47.1 fL (35.1-46.3); Red Blood Cell Count 4.38 M/mm3 (4.30-5.90); White Blood Cell Count 5.76 K/mm3 (4.00-11.30)
[2018-12-14 04:19] LABS: Mean Corpuscular Volume 94 fL (80-100)
--- NOTE | 2018-12-14 06:16 | NUR ---
SHIFT SUMMARY PT RESTING WELL THIS SHIFT. AAOX4. DISCOMFORT CONTROLLED WITH 25mcg FENTANYL X2 THIS SHIFT, NAUSEA CONTROLLED WITH ZOFRAN X1, NO EMESIS. HEPARIN GTT CONTINUED THIS SHIFT, TITRATED X1 PER PHARMACY. PT INDEPENDENT IN ROOM. IVF PER ORDERS. PT RESTING WELL THIS AM WITH CALL LIGHT IN REACH + NO ACUTE DISTRESS NOTED.
--- NOTE | 2018-12-14 18:24 | NUR ---
SHIFT SUMMARY PT HAS DONE WELL THIS SHIFT. HEPARIN INFUSION RUNNING PER PHARMACY DOSING. UP TO SHOWER AND IN ROOM. TOLERATING SMALL AMOUNTS FULL LIQUID DIET. MEDICATED FOR ABDOMINAL PAIN PER EMAR. DR MURO UNAVAILABLE FOR CONSULTS UNTIL SUNDAY.
--- NOTE | 2018-12-15 06:11 | NUR ---
SHIFT SUMMARY: CONCHITA IS HERE RECEIVING IV HEPARIN FOR THE SUPERIOR MESENTERIC VEIN THROMBOSIS. HE IS A&OX4. VSS. ABLE TO MAKE HIS NEEDS KNOWN. HIS PAIN IS CURRENTLY 4/10, DOWN FROM 9/10 WITH THE USE OF IV FENTANYL. HE IS INDEPENDENT IN THE ROOM. HE DENIES ANY NAUSEA/VOMITING AT THIS TIME. HE STATES THAT HE IS TOLERATING HIS FULL LIQUID DIET WELL. HE IS LYING IN BED WITH HIS CALL LIGHT IN REACH.
--- NOTE | 2018-12-15 08:43 | NUR ---
PATIENT STATES HE IS HAVING MILD CRAMPING IN HIS LOWER ABDOMEN TODAY. CURRENTLY HE IS PLEASANT AND NOTES THAT HIS STOMACH DOES NOT HURT AND IS FEELING FAIRLY SETTLED.
[2018-12-15] MEDS ORDERED: HYDR1TAB94 PO (11:39)
[2018-12-17] MEDS ORDERED: XARELTO20 MG PO (13:57)
[2018-12-27] MEDS ORDERED: ENOX120I SC (14:50)
[2018-12-27] MEDS ORDERED: OMEPRAZOLE20 MG (15:22)
== END 2018-12-15 12:05 | disposition home or self-care (01) | DRG 395 ==
LOC: ER 17:01 → SURS 23:39
PROVIDERS: Emergency Medicine; Internal Medicine; Nurse Practitioner Acute Care; Physician Assistant; ADMIT Internal Medicine
DX: K55.069 Acute infarction of intestine, part and extent unspecified (principal); K21.9 Gastro-esophageal reflux disease without esophagitis; E66.01 Morbid (severe) obesity due to excess calories; Z98.84 Bariatric surgery status; Z68.39 Body mass index [BMI] 39.0-39.9, adult
CPT/HCPCS: 36415; 51798; 80048; 80053; 81001; 83605; 83690; 85025; 85027; 85610; 85730; 87086; 96361; 96374; 96375; 99284-25; C9113; J1170; J1644; J2270; J2405; J3010; J7030

== ENCOUNTER 2018-12-18 10:56 | Inpatient (IN) | payer OTHER ==
[~2018-12-18] VITALS: Ht 188 cm; Wt 140.0 kg
[~2018-12-18 10:56] MED LIST changes: +HYDR1TAB94 PO; +XARELTO20 MG PO
--- NOTE | 2018-12-18 18:00 | NUR ---
PT ADMITTED FROM DIABETOLOGIST TO ICU 11. PT ARRIVES, PALE AND CLAMMY, C/O ABDOMINAL PAIN WITH SLIGHTEST TOUCH OR MOVEMENT. SHEATH NOTED WITH TPA AND HEPARIN RUNNING THROUGH RUQ, VERIFIED RATES WITH ERIN GARCIA. PT NSR ON TELE, VSS. NO S/S BLEEDING AT THIS TIME. DR MURO CAME TO SEE PT AND CLARIFIED ORDERS. STATED TO KEEP GTTS GOING OVERNIGHT.
[2018-12-18 18:14] LABS: BASOPHILS ABSOLUTE AUTO 0.06 K/mm3 (0.00-0.23); BASOPHILS PERCENT AUTO 1 % (0-2); EOSINOPHILS ABSOLUTE AUTO 0.03 K/mm3 (0.00-0.68); EOSINOPHILS PERCENT AUTO 1 % (0-6); Hematocrit 44.1 % (37.0-53.0); Hemoglobin 14.5 g/dL (13.5-17.5); IMMATURE GRAN ABSOLUTE AUTO 0.02 K/mm3 (0.00-0.10); IMMATURE GRAN PERCENT AUTO 0 % (0-1); LYMPHOCYTES ABSOLUTE AUTO 1.95 K/mm3 (0.84-5.20); LYMPHOCYTES PERCENT AUTO 29 % (21-46); MONOCYTES ABSOLUTE AUTO 0.45 K/mm3 (0.16-1.47); MONOCYTES PERCENT AUTO 7 % (4-13); Mean Corpuscular HGB 29.8 pg (26.0-34.0); Mean Corpuscular HGB Conc 32.9 g/dL (31.5-36.5); Mean Corpuscular Volume 91 fL (80-100); Mean Platelet Volume 11.4 fL (9.1-12.4); NEUTROPHILS ABSOLUTE AUTO 4.14 K/mm3 (1.96-9.15); NEUTROPHILS PERCENT AUTO 62 % (41-73); Platelet Count 185 K/mm3 (150-400); RDW Coefficient Variation 13.3 % (11.7-14.2); RDW Standard Deviation 45.1 fL (35.1-46.3); Red Blood Cell Count 4.86 M/mm3 (4.30-5.90); White Blood Cell Count 6.65 K/mm3 (4.00-11.30)
--- NOTE | 2018-12-18 18:49 | NUR ---
PT SITTING UPRIGHT AT SIDE OF BED USING URINAL. DENIES DIZZINESS AT THIS TIME. NO NEURO CHANGES NOTED SINCE ADMISSION.
--- NOTE | 2018-12-18 21:32 | NUR ---
ASSUMED CARE NOTE ASSUMED CARE OF PT AT 1900, RECEIVED REPORT FROM EL GARCIA. UPON ENTERING ROOM PT WAS PALE AND DIAPHORETIC. VSS. PT ON ROOM AIR, AND IS CURRENTLY IN NSR WITH HR IN THE 90'S, PT DENIES SOB/DIZZINESS. PT IS C/O SHARP ABD PAIN IN THE RUQ, PT BEING MEDICATED PER EMAR. PT IS C/O OF NAUSEA AND WAS GIVEN PRN ZOFRAN. PT IS USING URINAL INDEPENTENTLY. SURGICAL INSERTION SITE C/D/I, HEPARIN RUNNING @ 2.14 U/KG/HR, ALTEPLASE @ 0.5MG HR. /FRIENDS CAME TO VISIT. BED AT LOWEST LEVEL, CALL LIGHT WITHIN REACH. WILL CONTINUE TO MONITOR PT T/O SHIFT.
--- NOTE | 2018-12-19 06:16 | NUR ---
SHIFT SUMMARY. NO ACUTE CHANGES T/O SHIFT. PT SLEPT ON AND OFF T/O SHIFT, PT WOULD AWAKEN C/O SHARP PAIN TO THE RUQ. PT HAS BEEN MEDICATED PER EMAR. PT HAS REMAINED NPO SINCE MIDNIGHT. PT CONTINUES TO BE ALERT AND ORIENTED. PT IS STILL ON RA WITH SPO2 AT 94%. VSS, NSR WITH HR IN THE 90-100'S BMP. PT HAS NOT URINATED THIS SHIFT. PT WAS ENCOURAGED TO USE URINAL, HOWEVER PT STATED " I DO NOT FEEL THE URGE TO GO". VENOUS SHEATH REMAINS C/D/I TO RIGHT MID- AXILLARY WITH HEPARIN INFUSING AT 2.14 UNITS/KG/HR, AND TPA INFUSING AT 0.5MG/HR. BED AT LOWEST LEVEL. FAMILY IN ROOM, CALL LIGHT WITHIN REACH. WILL CONTINUE TO MONITOR PT UNTIL REPORT IS GIVEN TO ONCOMING SHIFT.
[2018-12-19 06:30] LABS: BASOPHILS ABSOLUTE AUTO 0.06 K/mm3 (0.00-0.23); BASOPHILS PERCENT AUTO 1 % (0-2); EOSINOPHILS ABSOLUTE AUTO 0.06 K/mm3 (0.00-0.68); EOSINOPHILS PERCENT AUTO 1 % (0-6); Hematocrit 42.7 % (37.0-53.0); Hemoglobin 13.9 g/dL (13.5-17.5); IMMATURE GRAN ABSOLUTE AUTO 0.02 K/mm3 (0.00-0.10); IMMATURE GRAN PERCENT AUTO 0 % (0-1); LYMPHOCYTES ABSOLUTE AUTO 2.84 K/mm3 (0.84-5.20); LYMPHOCYTES PERCENT AUTO 39 % (21-46); MONOCYTES ABSOLUTE AUTO 0.64 K/mm3 (0.16-1.47); MONOCYTES PERCENT AUTO 9 % (4-13); Mean Corpuscular HGB Conc 32.6 g/dL (31.5-36.5); Mean Corpuscular Volume 92 fL (80-100); Mean Platelet Volume 11.5 fL (9.1-12.4); NEUTROPHILS ABSOLUTE AUTO 3.62 K/mm3 (1.96-9.15); NEUTROPHILS PERCENT AUTO 50 % (41-73); Platelet Count 173 K/mm3 (150-400); RDW Coefficient Variation 13.8 % (11.7-14.2); RDW Standard Deviation 47.1 fL (35.1-46.3); Red Blood Cell Count 4.63 M/mm3 (4.30-5.90); White Blood Cell Count 7.24 K/mm3 (4.00-11.30)
[2018-12-19 06:50] LABS: Anion Gap 4 mmol/L (6-16); Blood Urea Nitrogen 7 mg/dL (8-24); Bun/Creatinine Ratio 9.1 (12.0-20.0); CO2, Blood 30 mmol/L (21-32); Chloride, Blood 106 mmol/L (98-108); Creatinine, Blood 0.77 mg/dL (0.60-1.20); Glomerular Filtration Rate >60 (60-); Glucose, Blood 80 mg/dL (70-99); Potassium, Blood 4.1 mmol/L (3.5-5.5); Sodium, Blood 140 mmol/L (136-145)
--- NOTE | 2018-12-19 07:19 | NUR ---
ASSUMED CARE: PT RESTING QUIETLY IN BED. SKIN PALE, CLAMMY. NSR ON TELE, VSS. ANTEPLASE AND HEPARIN GTTS VERIFIED WITH PRECILLA RN. RUNNING THROUGH SHEATH TO ABDOMINAL SITE. ABDOMINAL SITE WITH MINIMAL DRAINAGE TO GUAZE. PT'S ABDOMEN TENDER TO TOUCH. NPO AT THIS TIME
--- NOTE | 2018-12-19 08:20 | NUR ---
PT TAKEN TO FINANCE ACCOUNTING INTERNSHIP AT THIS TIME.
--- NOTE | 2018-12-19 10:11 | NUR ---
PT RETURNED FROM POWER SUPPLY ENGINEER. DRESSING IN PLACE TO RIGHT UPPER QUADRANT. SHEATH REMOVED AND SALINE LOCKED AT THIS TIME. PT RESTING SUPINE AT THIS TIME
--- NOTE | 2018-12-19 13:05 | NUR ---
DR MURO CAME BY TO SEE PT. HE IS AWAITING CALLS FROM [facility] FOR FURTHER INSTRUCTIONS. IN THE MEANTIME, CONTINUING TO MONITOR AND TREAT PAIN, PT ALLOWED CLEAR LIQUID DIET. PATIENT AWARE
--- NOTE | 2018-12-19 15:58 | NUR ---
DR MURO CAME BACK TO SEE PT. AWARE THAT PT HAS NOT BEEN ABLE TO TOLERATE CLEAR LIQUIDS WELL AND HAS VOMITED THE LITTLE HE HAS BEEN ABLE TO EAT. STATES HE IS WAITING TO HEAR BACK FROM [facility] FOR FURTHER INFO. PT AND FAMILY AWARE. REPORT GIVEN TO DENIS GARCIA.
--- NOTE | 2018-12-19 16:01 | NUR ---
RECEIVED REPORT FROM CLEM LION RN, ASSUMED CARE, PATIENT IS RESTING WITH EYES CLOSED AT THIS TIME, RECEIVED COMPAZINE FOR NAUSEA AND VOMITING, DR. MURO IN AGAIN AND PATIENT NOW INPATIENT STATUS, ALSO IVF'S ORDERED, FAMILY AT BEDSIDE, CALL LIGHT IN REACH, WILL CONTINUE TO MONITOR.
--- NOTE | 2018-12-19 17:43 | NUR ---
SHIFT SUMMARY NOTE: PATIENT IS SLEEPING AT THIS TIME, NO ACUTE EVENTS, HAD ONE EPISODE OF EMESIS AND NAUSEA THIS AFTERNOON AFTER EATING SOME JELLO, RECEIVED COMPAZINE WITH GOOD RESULTS, PATIENT C/O ENTIRE RIGHT SIDED PAIN 10/12, RECEIVED FENTANYL IV AND OXYCODONE IV, DR. MURO AT BEDSIDE TWICE TO UPDATE PATIENT AND FAMILY, AWAITING CALL FROM [facility], DR. MURO CALLED [facility] AND SPOKE WITH SALES AGENT TRADING STAMPS, WHO IN TURN TOLD HIM HE WOULD CONTACT PHYSICIAN AND GET BACK TO DR. MURO, STILL AWAITING CALL, PATIENT IS NOW INPATIENT ICU STATUS, IVF INFUSING AT 125 CC/HR, AND HEPARIN GTT CONTINUES AT 15 UNITS, VSS, FOR DETAILS SEE SHIFT ASSESSMENT DOCUMENTATION AND NURSES NOTES, CALL LIGHT IN REACH, WILL CONTINUE TO MONITOR.
--- NOTE | 2018-12-19 18:19 | NUR ---
PATIENT RECEIVED 5 MG COMPAZINE PO FOR "QUEAZINESS AND SLIGHT NAUSEA", WILL CONTINUE TO MONITOR.
--- NOTE | 2018-12-19 20:46 | NUR ---
ASSUMED CARE NOTE: ASSUMED CARE OT PT AT 1900, RECEIVED REPORT FROM JOSE BARRIOS. UPON ENTERING PT WAS IN SEMI-FOWLERS POSITION. PT IS ON RA WITH SPO2 AT 94%. WHILE PERFORMING ASESSMENT, PT WAS ASKED TO TAKE A DEEP BREATH, HE REPLIED " I CAN'T, IT HURTS TOO MUCH". LUNG SOUNDS WERE DIMINISHED BILAT AT LOWER LOBES. PT CURRENTLY IN NSR WITH HR RANGING IN THE 90'S-100'S. HOWVER, PT BECOMES TACHY WHICH MAY BE ASSOSIATED WITH HIGHER PAIN LEVELS. PT STATED 8/10 PAIN, LOCATED IN THE RUQ, HE STATES " IT IS A SHARP PAIN, ANY MOVEMENT MAKES IT WORSE". PT HAS BEEN MEDICATED PER EMAR, WHICH SEEMS TO BE EFFECTIVE, BRINGING HIS PAIN DOWN TO A 4/10. PT DENIES ANY NAUSEA AND VOMITING AT THIS TIME. HYPOACTIVE BOWEL TONES IN ALL 4 QUADRANTS. HEPARIN AT 17U/KG/HR INFUSING. BED AT LOWEST LEVEL, CALL LIGHT WITHIN REACH. WILL CONTINUE TO MONITOR FOR CHANGES T/O SHIFT. PT WAS ABLE TO USE THE URINAL AND VOID GONZALO COLORED URINE.
--- NOTE | 2018-12-19 22:35 | NUR ---
UPDATE: PT PLACED ON 2L OF 02 VIA NC, DUE TO SPO2 DROPPING TO 84% PT WAS ENCOURAGED TO TAKE DEEP BREATHS (PT STATES THIS HURTS), AFTER 2L OF O2 WAS PLACED SPO2 INCREASED TO 94% LUNG SOUNDS REMAINED UNCHANGED. WILL CONTINUE TO MONITOR PT.
[2018-12-20 03:39] LABS: BASOPHILS ABSOLUTE AUTO 0.06 K/mm3 (0.00-0.23); BASOPHILS PERCENT AUTO 1 % (0-2); EOSINOPHILS ABSOLUTE AUTO 0.14 K/mm3 (0.00-0.68); EOSINOPHILS PERCENT AUTO 2 % (0-6); Hematocrit 39.4 % (37.0-53.0); Hemoglobin 12.9 g/dL (13.5-17.5); IMMATURE GRAN ABSOLUTE AUTO 0.03 K/mm3 (0.00-0.10); IMMATURE GRAN PERCENT AUTO 1 % (0-1); LYMPHOCYTES ABSOLUTE AUTO 2.38 K/mm3 (0.84-5.20); LYMPHOCYTES PERCENT AUTO 36 % (21-46); MONOCYTES PERCENT AUTO 9 % (4-13); Mean Corpuscular HGB 30.1 pg (26.0-34.0); Mean Corpuscular HGB Conc 32.7 g/dL (31.5-36.5); Mean Corpuscular Volume 92 fL (80-100); NEUTROPHILS ABSOLUTE AUTO 3.33 K/mm3 (1.96-9.15); NEUTROPHILS PERCENT AUTO 51 % (41-73); Platelet Count 163 K/mm3 (150-400); RDW Coefficient Variation 13.7 % (11.7-14.2); RDW Standard Deviation 46.1 fL (35.1-46.3); Red Blood Cell Count 4.29 M/mm3 (4.30-5.90); White Blood Cell Count 6.54 K/mm3 (4.00-11.30)
[2018-12-20 03:56] LABS: Alanine Aminotransfer (ALT/SGP 56 U/L (12-78); Albumin, Blood 2.9 g/dL (3.4-5.0); Albumin/Globulin Ratio 0.9 (0.8-1.8); Alk Phos 71 U/L (50-136); Anion Gap 6 mmol/L (6-16); Aspartate Aminotrans (AST/SGOT 27 U/L (12-37); Bilirubin, Total 0.9 mg/dL (0.1-1.0); Blood Urea Nitrogen 7 mg/dL (8-24); Bun/Creatinine Ratio 9.8 (12.0-20.0); CO2, Blood 27 mmol/L (21-32); Calcium, Blood 8.2 mg/dL (8.5-10.1); Chloride, Blood 107 mmol/L (98-108); Creatinine, Blood 0.72 mg/dL (0.60-1.20); Globulin, Blood 3.2 g/dL (2.2-4.0); Glomerular Filtration Rate >60 (60-); Glucose, Blood 83 mg/dL (70-99); Magnesium, Blood 1.7 mg/dL (1.6-2.4); Phosphorus, Blood 3.1 mg/dL (2.5-4.9); Potassium, Blood 3.5 mmol/L (3.5-5.5); Sodium, Blood 140 mmol/L (136-145); Total Protein, Blood 6.1 g/dL (6.4-8.2)
--- NOTE | 2018-12-20 05:45 | NUR ---
SHIFT SUMMARY: PT CONTINUES TO BE ALERT AND ORIENTEDX4. PT CONTINUES TO BE IN NSR WITH HR RANGING IN THE 80-90 BMP. VSS. PT STILL ON 2L OF O2 VIA NC, WITH SPO2 REMAINING ABOUVE 90%. DURING SHIFT PT STATED THAT HE WAS NOT ABLE TO TAKE DEEP BREATHS BECAUSE IT WAS PAINFUL. PT WAS EDUCATED ON THE RISK OF PNEUMONIA. PT ALSO STATED THAT HE WAS SOB, AND THAT IT BECAME WORSE WHEN HIS PAIN LEVEL RISED. PT ALSO STATED " I THINK I AM SOB BECAUSE OF MY AXIETY, I FEEL LIKE I AM HAVING A PANIC ATTACK WHEN I AM IN SO MUCH PAIN" PT WAS REMINDED TO ADVISE NURSE WHEN HE BEINGS TO FEEL THE PAIN LEVEL INCREASE, SO IT CAN BE TREATED. PT HAS DENIED AND NAUSEA DURING SHIFT. PT HAS NOT BEEN ABLE TO URINATE, AND HE STATES THAT HE DOES NOT FEEL THE URGE. WILL ENCOURGE PT TO USE URINAL BEFORE THE END OF SHIFT. HEPARIN RUNNING AT 17U/KG/HR. PT REPOSITONS SELF, BED AT LOWEST LEVEL, WILL CONTINUE TO MONITOR UNTIL REPORT IS GIVEN TO INCOMING SHIFT.
--- NOTE | 2018-12-20 08:30 | NUR ---
ASSUMED CARE OF PATIENT. C/O NAUSEA, MEDICATED PER EMAR WITH RELIEF. STATED PAIN IS 4-5/10; COMFORTABLE AT 4/10. EDUCATED PATIENT TO NOTIFY STAFF FOR PAIN MEDICATION BEFORE PAIN GETS ABOVE 7/10 HE WILL ACHIEVE BETTER PAIN CONTROL IF PAIN IS TREATED EARLY; VERBALIZED UNDESTANDING. AFEBRILE, VSS. A&O X 3, PLEASANT AND COOPERATIVE. PARENTS AT BEDSIDE.
--- NOTE | 2018-12-20 10:00 | NUR ---
PATIENT ATTEMPTED TO EAT JELLO ON BREAKFAST TRAY, VOMITED. MEDICATED PER EMAR.
--- NOTE | 2018-12-20 11:54 | NUR ---
SPOKE TO DR. PHILLIPS BY PHONE, GAVE UPDATE ON PATIENT CONDITION, PAIN. REPORTED THAT PT IS UNABLE TO TOLERATE PO. PAIN IS ADEQUATELY CONTROLLED WITH CURRENT REGIMEN. PROVIDER STATED THAT HE HAS BEEN ON THE PHONE TRYING TO REACH ACCEPTING PROVIDER AT [facility] FOR PATIENT TRANSFER. ASKED ABOUT PLAN FOR WEEKEND IF TRANSFER DOESN'T OCCUR, COVERING MD. PROVIDER STATED THAT HE WILL LIKEY HAVE CONTROL SYSTEMS DESIGNER COVER. ASKED PROVIDER TO KEEP IN TOUCH WITH THIS AUTHOR FOR PLAN CHANGES, VERBALIZED UNDERSTANDING.
--- NOTE | 2018-12-20 12:40 | NUR ---
DR. MURO/[facility] DOC DR. MURO CALLED AND STATES PT HAS BEEN ACCEPTED BY GENERAL SURGEON DR. HAYDE GARY AT [facility]. FACE SHEET SENT TO [facility] TRANSFER [facility]. AWAITING BED ASSIGNMENT AT THIS TIME. FAMILY AND PT UPDATED ON PLAN OF CARE.
--- NOTE | 2018-12-20 12:56 | NUR ---
[facility] TRANSFER UPDATE: DR MURO CALLED TO INFORM KATHY KELLER THAT GENERAL SURGERY-DR GARY HAS ACCEPTED THIS PT. NO AVAILABLE BEDS AT THIS TIME. PT/FAMILY INFORMED OF THE ABOVE INFO. WILL TNX WHEN BED IS AVAILABLE.
--- NOTE | 2018-12-20 17:40 | NUR ---
NOTIFIED OF BED AT [facility] BY [employer] SYSTEMS ENGINEERJOSE GRADY. FAMILY NOTIFIED OF IMPENDING TRANSFER. TRANSFER SUMMARY COMPLETED. REPORT GIVEN BY PHONE TO A WILLIAM GARCIA AT [facility] AT [id number]. AMBULANCE EN ROUTE AT THIS TIME.
--- NOTE | 2018-12-20 18:40 | NUR ---
EMS ARRIVED AT 1828 FOR PATIENT TRANSPORT TO [facility]. VERBAL REPORT GIVEN TO DONAL DEWITT. PATIENT MEDICATED FOR PAIN JUST PRIOR TO TRANSPORT. PATIENT BELONGINGS TAKEN HOME BY FAMILY WITH THE EXCEPTION OF HIS CELL PHONE AND WEEKEND CAREGIVER, WHICH PT HAS IN HIS POSSESSION. PT STAND-PIVOT TRANSFERRED TO EMS [facility]. A&O X 4, DENIES NAUSEA, STATED PAIN IS 2/10, COMFORTABLE. EMS DEPARTED UNIT WITH PATIENT AT 1844.
[2018-12-27] MEDS ORDERED: ENOX120I SC (14:50)
[2018-12-27] MEDS ORDERED: OMEPRAZOLE20 MG (15:22)
== END 2018-12-20 18:35 | disposition short-term general hospital (02) | DRG 394 ==
LOC: MHTC 10:56 → ICUW 16:30 → MHTC 20:10 → ICUW 20:10
PROVIDERS: Internal Medicine Pulmonary Disease; ADMIT Radiology Diagnostic Radiology
DX: K55.069 Acute infarction of intestine, part and extent unspecified (principal); Z68.41 Body mass index [BMI] 40.0-44.9, adult; E66.01 Morbid (severe) obesity due to excess calories; K21.9 Gastro-esophageal reflux disease without esophagitis
CPT/HCPCS: 36011; 36012; 36415; 36481; 37187; 37212; 37214; 37241; 37248; 75887; 76998; 80048; 80053; 83735; 84100; 85025; 85384; 85730; 86850; 86900; 86901; 99152; 99153; C1725; C1751; C1769; C1887; C1894; J0780; J1200; J1644; J2060; J2250; J2405; J2997; J3010; J7030; J7040; Q0164; Q9967

== ENCOUNTER 2019-04-13 22:31 | Emergency (ER) | payer OTHER ==
[~2019-04-13] VITALS: Ht 188 cm; Wt 127.0 kg
[~2019-04-13 22:31] MED LIST changes: +ENOX120I SC; +OMEPRAZOLE20 MG
[2019-04-13 23:01] LABS: BASOPHILS ABSOLUTE AUTO 0.07 K/mm3 (0.00-0.23); BASOPHILS PERCENT AUTO 1 % (0-2); EOSINOPHILS ABSOLUTE AUTO 0.07 K/mm3 (0.00-0.68); EOSINOPHILS PERCENT AUTO 1 % (0-6); Hemoglobin 14.4 g/dL (13.5-17.5); IMMATURE GRAN ABSOLUTE AUTO 0.01 K/mm3 (0.00-0.10); IMMATURE GRAN PERCENT AUTO 0 % (0-1); LYMPHOCYTES ABSOLUTE AUTO 4.07 K/mm3 (0.84-5.20); LYMPHOCYTES PERCENT AUTO 49 % (21-46); MONOCYTES ABSOLUTE AUTO 0.63 K/mm3 (0.16-1.47); MONOCYTES PERCENT AUTO 8 % (4-13); Mean Corpuscular HGB 25.8 pg (26.0-34.0); Mean Corpuscular HGB Conc 31.3 g/dL (31.5-36.5); Mean Corpuscular Volume 82 fL (80-100); Mean Platelet Volume 10.4 fL (9.1-12.4); NEUTROPHILS ABSOLUTE AUTO 3.48 K/mm3 (1.96-9.15); NEUTROPHILS PERCENT AUTO 42 % (41-73); Platelet Count 242 K/mm3 (150-400); RDW Coefficient Variation 14.6 % (11.7-14.2); RDW Standard Deviation 44.9 fL (35.1-46.3); Red Blood Cell Count 5.58 M/mm3 (4.30-5.90); White Blood Cell Count 8.33 K/mm3 (4.00-11.30)
[2019-04-13 23:20] LABS: Alanine Aminotransfer (ALT/SGP 182 U/L (12-78); Albumin, Blood 3.6 g/dL (3.4-5.0); Albumin/Globulin Ratio 0.9 (0.8-1.8); Alk Phos 183 U/L (50-136); Anion Gap 6 mmol/L (6-16); Aspartate Aminotrans (AST/SGOT 322 U/L (12-37); Bilirubin, Total 0.6 mg/dL (0.1-1.0); Blood Urea Nitrogen 15 mg/dL (8-24); CO2, Blood 27 mmol/L (21-32); Calcium, Blood 8.7 mg/dL (8.5-10.1); Chloride, Blood 111 mmol/L (98-108); Creatinine, Blood 0.79 mg/dL (0.60-1.20); Glomerular Filtration Rate >60 (60-); Glucose, Blood 103 mg/dL (70-99); Potassium, Blood 3.8 mmol/L (3.5-5.5); Sodium, Blood 144 mmol/L (136-145); Total Protein, Blood 7.6 g/dL (6.4-8.2)
[2019-04-13 23:24] LABS: Source, Urine Clean Catch
[2019-04-13 23:52] LABS: Appearance, Urine Clear (Clear); Bilirubin, Urine Neg (Neg); Blood, Urine Neg (Neg); Color, Urine Amber (P-Yellow); Glucose Qualitative, Urine Neg (Neg); Ketones, Urine Neg (Neg); Leukocyte Esterase, Urine 1+ (Neg); Nitrite, Urine Neg (Neg); Protein, Urine Neg (Neg); Urobilinogen, Urine 2+ (Normal)
[2019-04-13 23:59] LABS: Bacteria Few /hpf; Red Blood Cells, Urine 0-2 /hpf (0-2); Squamous Epithelial Cells Not Seen /hpf (Few)
== END 2019-04-14 02:46 | disposition home or self-care (01) ==
LOC: ER 22:31
PROVIDERS: Emergency Medicine
DX: R10.11 Right upper quadrant pain (principal); Z88.5 Allergy status to narcotic agent; Z88.1 Allergy status to other antibiotic agents
CPT/HCPCS: 36415; 74177; 76705; 80053; 81001; 83690; 85025; 87086; 96361; 96374-59; 96375; 99284-25; J2405; J3010; J7030; Q9967

== ENCOUNTER 2019-05-30 18:44 | Inpatient (IN) | payer OTHER ==
[~2019-05-30] VITALS: Ht 188 cm; Wt 129.7 kg
[2019-05-30 19:09] LABS: BASOPHILS ABSOLUTE AUTO 0.09 K/mm3 (0.00-0.23); BASOPHILS PERCENT AUTO 1 % (0-2); EOSINOPHILS PERCENT AUTO 1 % (0-6); Hematocrit 45.2 % (37.0-53.0); Hemoglobin 14.3 g/dL (13.5-17.5); IMMATURE GRAN ABSOLUTE AUTO 0.02 K/mm3 (0.00-0.10); IMMATURE GRAN PERCENT AUTO 0 % (0-1); LYMPHOCYTES ABSOLUTE AUTO 3.92 K/mm3 (0.84-5.20); LYMPHOCYTES PERCENT AUTO 50 % (21-46); MONOCYTES ABSOLUTE AUTO 0.59 K/mm3 (0.16-1.47); MONOCYTES PERCENT AUTO 8 % (4-13); Mean Corpuscular HGB Conc 31.6 g/dL (31.5-36.5); Mean Corpuscular Volume 85 fL (80-100); Mean Platelet Volume 10.4 fL (9.1-12.4); NEUTROPHILS ABSOLUTE AUTO 3.18 K/mm3 (1.96-9.15); NEUTROPHILS PERCENT AUTO 40 % (41-73); Platelet Count 240 K/mm3 (150-400); RDW Coefficient Variation 16.5 % (11.7-14.2); RDW Standard Deviation 51.6 fL (35.1-46.3)
[2019-05-30 19:27] LABS: Alanine Aminotransfer (ALT/SGP 29 U/L (12-78); Albumin, Blood 3.8 g/dL (3.4-5.0); Alk Phos 123 U/L (50-136); Anion Gap 4 mmol/L (6-16); Aspartate Aminotrans (AST/SGOT 38 U/L (12-37); Bilirubin, Total 0.2 mg/dL (0.1-1.0); Blood Urea Nitrogen 15 mg/dL (8-24); CO2, Blood 31 mmol/L (21-32); Calcium, Blood 9.1 mg/dL (8.5-10.1); Chloride, Blood 106 mmol/L (98-108); Creatinine, Blood 1.07 mg/dL (0.60-1.20); Globulin, Blood 3.8 g/dL (2.2-4.0); Glomerular Filtration Rate >60 (60-); Glucose, Blood 105 mg/dL (70-99); Sodium, Blood 141 mmol/L (136-145); Total Protein, Blood 7.6 g/dL (6.4-8.2)
[2019-05-30] MEDS ORDERED: TRAM50 PO (21:24)
--- NOTE | 2019-05-31 05:21 | NUR ---
WAREHOUSE REPRESENTATIVE SUMMARY NEW ADMIT FROM THE ED TONIGHT. PT AAOX4 AND INDEPENDENT IN ROOM. CAME IN WITH RUQ PAIN FOR THE LAST FEW DAYS. US SHOWED GALL STONES. LIPASE 1754 ON ADMIT. PT ON CLEAR LIQUID DIET AT THIS TIME. TO HAVE PROBABLE LAP GE IN THE NEXT DAY OR TWO. GIVEN DILAUDID 1 MG IV X1 TONIGHT FOR PAIN. VSS, WILL CONTINUE TO MONITOR.
--- NOTE | 2019-05-31 18:17 | NUR ---
SHIFT SUMMARY- PT IS A/O, PLESANT AND COOPERATIVE. HE IS ON A CLEAR LIQUID DIET AND IS TOLERATING WELL. HE IS HAVING PAIN IN THE RUQ AND IS BEING TREATED PER MAR. HE ALSO IS HAVING INTERMITENT NAUSEA WITH IS WELL CONTROLED WITH ZOFRAN. HE IS INDEPENDANT IN THE ROOM. DR. BRITO WILL EVALUATE MORNING LABS AND DETERMINE IF PT IS APPROPRIATE FOR SURGERY IN THE MORNING.
--- NOTE | 2019-06-01 03:06 | NUR ---
SHIFT SUMMARY ASSUMED CARE PF PT AT 1900. PT IS A/O X4, DENIES N/T IN EXTREMITIES. HEART SOUNDS REGULAR, LUNG SOUNDS CLEAR, DENIES CP/SOB AT THIS TIME. PT C/O PAIN IN HIS R SIDE, MEDICATED REGULARLY PER EMAR. PT HAS BEEN NPO SINCE MIDNIGHT FOR POSSIBLE LAP/GE TODAY IF LABS ARE STABLE. NO ACUTE EVENTS DURING THE NIGHT, PT WOULD AWAKEN WITH PAIN BUT THEN WOULD FALL BACK ASLEEP. CALL LIGHT IN REACH, BED IN LOWEST POSTION, WILL CONTINUE TO MONITOR UNTIL DAYSHIFT NURSE ARRIVES.
[2019-06-01 04:59] LABS: BASOPHILS ABSOLUTE AUTO 0.06 K/mm3 (0.00-0.23); BASOPHILS PERCENT AUTO 1 % (0-2); EOSINOPHILS ABSOLUTE AUTO 0.12 K/mm3 (0.00-0.68); EOSINOPHILS PERCENT AUTO 3 % (0-6); Hematocrit 42.4 % (37.0-53.0); Hemoglobin 13.2 g/dL (13.5-17.5); IMMATURE GRAN ABSOLUTE AUTO 0.01 K/mm3 (0.00-0.10); IMMATURE GRAN PERCENT AUTO 0 % (0-1); LYMPHOCYTES ABSOLUTE AUTO 2.81 K/mm3 (0.84-5.20); LYMPHOCYTES PERCENT AUTO 58 % (21-46); MONOCYTES ABSOLUTE AUTO 0.41 K/mm3 (0.16-1.47); MONOCYTES PERCENT AUTO 9 % (4-13); Mean Corpuscular HGB 26.6 pg (26.0-34.0); Mean Corpuscular HGB Conc 31.1 g/dL (31.5-36.5); Mean Corpuscular Volume 85 fL (80-100); Mean Platelet Volume 10.4 fL (9.1-12.4); NEUTROPHILS ABSOLUTE AUTO 1.42 K/mm3 (1.96-9.15); NEUTROPHILS PERCENT AUTO 29 % (41-73); Platelet Count 205 K/mm3 (150-400); RDW Coefficient Variation 16.4 % (11.7-14.2); RDW Standard Deviation 51.5 fL (35.1-46.3); Red Blood Cell Count 4.97 M/mm3 (4.30-5.90); White Blood Cell Count 4.83 K/mm3 (4.00-11.30)
[2019-06-01 05:24] LABS: Alanine Aminotransfer (ALT/SGP 39 U/L (12-78); Albumin, Blood 3.1 g/dL (3.4-5.0); Alk Phos 100 U/L (50-136); Anion Gap 3 mmol/L (6-16); Aspartate Aminotrans (AST/SGOT 26 U/L (12-37); Bilirubin, Total 0.8 mg/dL (0.1-1.0); Blood Urea Nitrogen 10 mg/dL (8-24); Bun/Creatinine Ratio 11.3 (12.0-20.0); CO2, Blood 31 mmol/L (21-32); Calcium, Blood 8.8 mg/dL (8.5-10.1); Chloride, Blood 107 mmol/L (98-108); Creatinine, Blood 0.88 mg/dL (0.60-1.20); Globulin, Blood 3.2 g/dL (2.2-4.0); Glomerular Filtration Rate >60 (60-); Glucose, Blood 79 mg/dL (70-99); Sodium, Blood 141 mmol/L (136-145); Total Protein, Blood 6.3 g/dL (6.4-8.2)
--- NOTE | 2019-06-01 10:54 | NUR ---
PT TRANSFERED TO OR FOR SURGERY. PT WILL TRANSFER TO SURGICAL UNIT POST SX. REPORT GIVEN TO SURGICAL FLOOR NURSE
--- NOTE | 2019-06-01 12:07 | NUR ---
PT HERE FROM PACU IN OWN BED. PT HAS GAUZE PADS C/D/I TO ABD. PT REPORTS PAIN TOLERABLE. PT DENIES CP/SOB, N/V, N/T. PT HAS PAS TO BLE IN PLACE. PT A/O. PT ASSISTED WITH ADL'S PRN. THIS RN BEEN GIVEN REPORT AND IS ASSUMING CARE AT THIS TIME.
--- NOTE | 2019-06-01 16:51 | NUR ---
SHIFT SUMMARY PT EATING AND DRINKING, VOIDING. PT BEEN ASSISTED WITH ADL'S PRN. PT BEEN MED PRN FOR PAIN. PT HAD PROCEDURE TODAY.
--- NOTE | 2019-06-01 20:10 | NUR ---
IV PRESENT IN LEFT HAND AT TIME OF ASSESSMENT. PT STATES PREVIOUS IV WENT BAD JUST PRIOR TO SURGERY.
--- NOTE | 2019-06-02 06:34 | NUR ---
SHIFT SUMMARY: CONCHITA IS POD1 FOR A LAP GE. HE IS A&O X 4, INDEPENDENT IN THE ROOM. HE REPORTS GOOD PAIN CONTROL WITH 2 TABLETS OF NORCO. HE DID HAVE SOME NAUSEA YESTERDAY, BUT HAS BEEN EATING CRACKERS WITH PAIN PILLS AND HAD NOT HAD ANY FURTHER DIFFICULTY. SALINE LOCKED. DRESSINGS X 4 ON ABDOMEN C/D&I. HE USES HIS CALL LIGHT APPROPRIATELY. WILL REPORT TO DAY SHIFT RN.
[2019-06-02] MEDS ORDERED: PROM25 PO (12:01)
[2019-06-02] MEDS ORDERED: HYDR1TAB94 PO (12:02)
--- NOTE | 2019-06-02 13:06 | NUR ---
DISCHARGED DC'D IV TO L HAND, IV CATHETER INTACT. REVIEWED DC PAPERWORK W/PT; VERBALIZED UNDERSTANDING. LEFT UNIT BY AMBULATION W/POSSESSIONS AND DC PAPERWORK IN HAND TO RIDE AWAITING OUTSIDE.
== END 2019-06-02 13:03 | disposition home or self-care (01) | DRG 419 ==
LOC: ER 18:44 → MEDS 18:45 → SURS 06-01 12:10
PROVIDERS: Emergency Medicine; ADMIT Surgery
PROC: BF13YZZ Fluoroscopy of Gallbladder and Bile Ducts using Other Contrast (ICD-10-PCS; 2019-06-01)
PROC: 0FT44ZZ Resection of Gallbladder, Percutaneous Endoscopic Approach (ICD-10-PCS; principal; 2019-06-01 09:00)
DX: K85.10 Biliary acute pancreatitis without necrosis or infection (principal); E66.9 Obesity, unspecified; Z68.36 Body mass index [BMI] 36.0-36.9, adult
CPT/HCPCS: 36415; 74300; 76705; 80053; 83690; 85025; 88304; 96361; 96374; 96375; 96376; 99285-25; A9270-GY; C1729; G0378; J0690; J1170; J1885; J2250; J2405; J2704; J2710; J2765; J3010; J7030; J7120

== ENCOUNTER 2021-12-04 11:02 | Emergency (ER) | payer OTHER ==
[~2021-12-04] VITALS: Ht 188 cm; Wt 136.1 kg
[~2021-12-04 11:02] MED LIST changes: +PROM25 PO; +TRAM50 PO
[2021-12-04 11:36] LABS: BASOPHILS ABSOLUTE AUTO 0.08 K/mm3 (0.00-0.23); BASOPHILS PERCENT AUTO 1 % (0-2); EOSINOPHILS PERCENT AUTO 1 % (0-6); Hematocrit 44.3 % (37.0-53.0); Hemoglobin 14.8 g/dL (13.5-17.5); IMMATURE GRAN ABSOLUTE AUTO 0.06 K/mm3 (0.00-0.10); IMMATURE GRAN PERCENT AUTO 1 % (0-1); LYMPHOCYTES ABSOLUTE AUTO 3.17 K/mm3 (0.84-5.20); LYMPHOCYTES PERCENT AUTO 32 % (21-46); MONOCYTES ABSOLUTE AUTO 0.61 K/mm3 (0.16-1.47); MONOCYTES PERCENT AUTO 6 % (4-13); Mean Corpuscular HGB 29.6 pg (26.0-34.0); Mean Corpuscular HGB Conc 33.4 g/dL (31.5-36.5); Mean Corpuscular Volume 89 fL (80-100); Mean Platelet Volume 10.2 fL (9.1-12.4); NEUTROPHILS ABSOLUTE AUTO 5.81 K/mm3 (1.96-9.15); NEUTROPHILS PERCENT AUTO 59 % (41-73); Platelet Count 216 K/mm3 (150-400); RDW Coefficient Variation 12.6 % (11.7-14.2); RDW Standard Deviation 40.9 fL (35.1-46.3); White Blood Cell Count 9.83 K/mm3 (4.00-11.30)
[2021-12-04 11:40] LABS: Source, Urine Clean Catch
[2021-12-04 11:43] LABS: Bilirubin, Urine Neg (Neg); Blood, Urine Neg (Neg); Glucose Qualitative, Urine Neg (Neg); Ketones, Urine Neg (Neg); Leukocyte Esterase, Urine Neg (Neg); Nitrite, Urine Neg (Neg); Protein, Urine Neg (Neg); Urobilinogen, Urine NORM (Normal)
[2021-12-04 11:50] LABS: Appearance, Urine Clear (Clear); Color, Urine Yellow (P-Yellow)
[2021-12-04 11:55] LABS: Albumin, Blood 3.4 g/dL (3.4-5.0); Albumin/Globulin Ratio 0.9 (0.8-1.8); Bilirubin, Total 0.4 mg/dL (0.1-1.0); Bun/Creatinine Ratio 9.8 (12.0-20.0); Calcium, Blood 8.8 mg/dL (8.5-10.1); Creatinine, Blood 0.92 mg/dL (0.60-1.20); Globulin, Blood 3.8 g/dL (2.2-4.0); Potassium, Blood 3.9 mmol/L (3.5-5.5); Total Protein, Blood 7.2 g/dL (6.4-8.2)
== END 2021-12-04 13:52 | disposition home or self-care (01) ==
LOC: ER 11:02
PROVIDERS: Physician Assistant
DX: R10.84 Generalized abdominal pain (principal); K21.9 Gastro-esophageal reflux disease without esophagitis; Z88.5 Allergy status to narcotic agent; Z88.1 Allergy status to other antibiotic agents; Z79.899 Other long term (current) drug therapy
CPT/HCPCS: 36415; 74177; 80053; 81003; 83605; 83690; 85025; 99284-25; J7030; Q9967